=== PATIENT | female | born 1960 | race Caucasian/White ===

== ENCOUNTER → 2024-10-30 | Outpatient (CLI) | payer MEDICARE ==
--- NOTE | 2024-10-31 07:12 | MR ---
EXAMINATION TYPE: MR shoulder LT wo con DATE OF EXAM: 10/30/2024 11:11 AM COMPARISON: Outside left shoulder x-rays October 19, 2024 CLINICAL INDICATION: Female, 64 years old with history of M25.512 LEFT SHOULDER PAIN, LT shoulder oliver n x9 years with difficulty raising arm overhead IV Contrast: cc (None if empty) TECHNIQUE: Multiplanar, multisequence imaging of the left shoulder is performed without contrast. FINDINGS: Rotator Cuff: Intact infraspinatus tendon. Abnormal increased signal in the supraspinatus tendon. Int act subscapularis tendon. Rotator cuff muscle bulk is preserved. Acromioclavicular Joint: Mild/moderate narrowing and capsular hypertrophy. Mild/moderate spurring. Glenohumeral Joint: Small sized joint effusion. No significant narrowing. Narrowing is present. Labrum: Increased signal superior labrum consistent with tear. Biceps Tendon: The long head of biceps is in normal location within bicipital groove. Bone marrow signal: No focal abnormal marrow signal is appreciated. Other: No additional significant abnormality is appreciated. IMPRESSION: 1. Superior labral tear. 2. Moderate tendinosis of the supraspinatus tendon. 3. Moderate degenerative changes are present as detailed above. [facility], , 10/31/2024 7:10 AM
== END | disposition home or self-care (01) ==
LOC: RADMRIMAIN 09:59
PROVIDERS: ATTEND Orthopaedic Surgery
DX: S43.432A Superior glenoid labrum lesion of left shoulder, initial encounter (principal); M67.814 Other specified disorders of tendon, left shoulder; M19.012 Primary osteoarthritis, left shoulder; X58.XXXA Exposure to other specified factors, initial encounter